=== PATIENT | female | born 1975 | race American Indian/Alaskan Native ===

== ENCOUNTER 2018-04-01 16:52 | Emergency (ER) | payer OTHER, SELFPAY ==
--- NOTE | 2018-04-01 20:02 | XRay Report ---
FINAL REPORT PROCEDURE: Left knee. TECHNIQUE: AP and lateral views. HISTORY: Patient fell, knee pain. COMPARISON: No prior studies are available for comparison. FINDINGS: The bones appear intact without fracture or dislocation. The joint spaces appear normal. The soft tissues are unremarkable. There is no evidence of a knee effusion. IMPRESSION: Normal study.
--- NOTE | 2018-04-01 20:03 | XRay Report ---
FINAL REPORT PROCEDURE: Left shoulder. TECHNIQUE: Five views. HISTORY: Patient fell, shoulder injury. COMPARISON: No prior studies are available for comparison. FINDINGS: The bones appear intact without fracture or dislocation. The joint spaces appear normal. The soft tissues are unremarkable. IMPRESSION: Normal study.
--- NOTE | 2018-04-01 20:04 | XRay Report ---
FINAL REPORT PROCEDURE: Left hip. TECHNIQUE: AP pelvis, frogleg lateral view of the left hip. HISTORY: Patient fell, hip pain. COMPARISON: No prior studies are available for comparison. FINDINGS: The bones appear intact without fracture or dislocation. The joint spaces appear normal. The sacroiliac joints and symphysis pubis appear normal. The soft tissues are unremarkable. IMPRESSION: Normal study.
--- NOTE | 2018-04-01 20:08 | XRay Report ---
FINAL REPORT PROCEDURE: Left elbow. TECHNIQUE: Two views. HISTORY: Patient fell, elbow injury. COMPARISON: No prior studies are available for comparison. FINDINGS: There is a longitudinal linear lucency through the radial head. This is seen on both oblique and lateral views. The posterior fat pad is visible. The anterior fat pad is elevated. These findings indicate an elbow effusion. The findings are consistent with a nondisplaced fracture of the radial head. Clinical correlation is recommended. IMPRESSION: Nondisplaced fracture of the radial head. Elbow effusion.
--- NOTE | 2018-04-01 20:09 | XRay Report ---
FINAL REPORT PROCEDURE: Left ankle. TECHNIQUE: AP and lateral views. HISTORY: Patient fell, ankle injury. COMPARISON: No prior studies are available for comparison. FINDINGS: The bones appear intact without fracture or dislocation. The joint spaces appear normal. The soft tissues are unremarkable. IMPRESSION: Normal study.
--- NOTE | 2018-04-01 20:20 | XRay Report ---
FINAL REPORT EXAM: XR WRIST 3+V LT HISTORY: fall TECHNIQUE: Three views of the left PRIORS: None. FINDINGS: The bones are normally aligned and mineralized. The joint spaces are well-preserved. There is no evidence of acute fracture. The soft tissues are unremarkable. IMPRESSION: No evidence of acute fracture or subluxation.
[2018-04-01] MEDS ORDERED: NORCO 5/325 PO ONE (20:43)
[2018-04-01] MEDS ORDERED: NORCO 5/325 ONE (20:48)
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
[2018-04-01] MEDS ORDERED: BOOSTRIX IM ONE (21:58)
[2018-04-01 22:19] VITALS: BP 136/72
== END 2018-04-01 22:16 | disposition home or self-care (01) ==
LOC: ED 16:52
DX: S52.125A Nondisplaced fracture of head of left radius, initial encounter for closed fracture (principal); S76.012A Strain of muscle, fascia and tendon of left hip, initial encounter; S66.912A Strain of unspecified muscle, fascia and tendon at wrist and hand level, left hand, initial encounter; S96.912A Strain of unspecified muscle and tendon at ankle and foot level, left foot, initial encounter; J45.909 Unspecified asthma, uncomplicated; Z87.891 Personal history of nicotine dependence; Z88.6 Allergy status to analgesic agent; V89.2XXA Person injured in unspecified motor-vehicle accident, traffic, initial encounter; Y93.89 Activity, other specified; Y99.8 Other external cause status; Y92.410 Unspecified street and highway as the place of occurrence of the external cause
CPT/HCPCS: 90471; 90715